=== PATIENT | female | born 1970 | race Caucasian/White ===

== ENCOUNTER 2016-11-09 22:00 | Emergency (ER) | payer OTHER ==
[~2016-11-09] VITALS: Ht 157.5 cm; Wt 57.5 kg
[2016-11-09 22:19] VITALS: Ht 157.5 cm; Wt 57.5 kg
[2016-11-09] MEDS ORDERED: KETOROLAC 15 MG INJ IM STA (23:42)
[2016-11-10] MEDS ORDERED: LIDOCAINE/MYLANTA 40 ML BTL PO ONE
[2016-11-10] MEDS ORDERED: FAMOTIDINE 20 MG TAB PO ONE
[2016-11-10] MEDS ORDERED: ONDANSETRON 4 MG INJ IV STA (01:21)
[2016-11-10] MEDS ORDERED: SOD CHLORIDE 0.9% 1,000 ML IV ONE (01:30)
[2016-11-10] MEDS ORDERED: morphine 10 MG INJ IM ONE (01:30)
[2016-11-10] MEDS ORDERED: PANTOPRAZOLE 40 MG INJ IV ONE (01:30)
[2016-11-10] MEDS ORDERED: morphine 2 MG INJ IV ONE (02:00)
[2016-11-10 02:06] LABS: ADD SCAN DIFF NO
[2016-11-10 02:07] LABS: BASOPHILS % 0.3 % (0.0-2.0); EOSINOPHILS % 0.4 % (0.0-7.0); HEMATOCRIT 31.8 % (37.0-47.0); HEMOGLOBIN 9.5 g/dl (12.0-16.0); LYMPHOCYTES # 2.1 10^3/ul (0.8-2.9); LYMPHOCYTES % 29.6 % (15.0-51.0); MEAN CORPUSCULAR HEMOGLOBIN 21.5 pg (29.0-33.0); MEAN CORPUSCULAR HGB CONC 29.9 g/dl (32.0-37.0); MEAN CORPUSCULAR VOLUME 71.9 fl (82.0-101.0); MEAN PLATELET VOLUME 11.2 fl (7.4-10.4); MONOCYTES % 13.6 % (0.0-11.0); NEUTROPHILS % 55.7 % (39.0-77.0); PLATELET COUNT 369 10^3/UL (140-415); RED BLOOD COUNT 4.42 10^6/ul (4.20-5.40); RED CELL DISTRIBUTION WIDTH 16.6 % (11.5-14.5); WHITE BLOOD COUNT 7.2 10^3/ul (4.8-10.8)
[2016-11-10 03:13] LABS: ALBUMIN 4.7 g/dl (3.3-4.9); ALBUMIN/GLOBULIN RATIO 1.8; BILIRUBIN,INDIRECT 0.3 mg/dl (0-1.1); BILIRUBIN,TOTAL 0.3 mg/dl (0.2-1.3); CREATININE 0.68 mg/dl (0.44-1.00); POTASSIUM 3.9 mmol/L (3.5-5.1); TOTAL PROTEIN 7.3 g/dl (6.1-8.1)
--- NOTE | 2016-11-10 03:16 | ERD ---
ER Documentation Chief Complaint Date/Time DATE: 11/10/16 TIME: 03:06 Chief Complaint epigastric pain x 3 weeks, diarrhea n/v resolved HPI This 46-year-old [place]-speaking female presents to emergency department today for epigastric pain 2 weeks, diarrhea, nausea, vomiting 30 days. Patient has been seen by her primary care physician today with prescribed Lomatil . Patient reports that she has had 3 diarrhea stools today. Did not tell her physician about the abdominal pain. Patient reports pain is worse now. Patient has history of recent travel [place]. Denies dysuria, fever, chills, blood in her urine or stool. ROS All systems reviewed and are negative except as per history of present illness. Medications Home Meds No Active Prescriptions or Reported Meds Allergies Allergies: Coded Allergies: No Known Allergy (Unverified , 06/21/11) PMhx/Soc History of Surgery: Yes (CSECTION, GALLBLADDER) Anesthesia Reaction: No Hx Neurological Disorder: No Hx Respiratory Disorders: No Hx Cardiac Disorders: No Hx Psychiatric Problems: No Hx Miscellaneous Medical Probl: No Hx Alcohol Use: No Hx Substance Use: No Hx Tobacco Use: No Smoking Status: Never smoker Physical Exam Vitals Vital Signs Date Time Temp Pulse Resp B/P Pulse Ox O2 Delivery O2 Flow Rate FiO2 11/09/16 22:19 98.4 82 18 104/61 100 Physical Exam Const: No acute distress Head: Atraumatic Eyes: Normal Conjunctiva, PERRLA, EOMI ENT: Normal External Ears, Nose and Mouth. Neck: Resp: Chest rise and fall symmetrically, respirations even and unlabored no respiratory distress Cardio: Regular rate and rhythm, no murmurs Abd: Symmetric, soft, epigastric tenderness Skin: Back: Ext: Neur: Awake and alert Psych: Normal Mood and Affect Result Diagram: 11/10/16 0131 11/10/16 0131 Results 24 hrs Laboratory Tests Test 11/10/16 01:31 White Blood Count 7.210^3/ul Red Blood Count 4.4210^6/ul Hemoglobin 9.5g/dl Hematocrit 31.8% Mean Corpuscular Volume 71.9fl Mean Corpuscular Hemoglobin 21.5pg Mean Corpuscular Hemoglobin Concent 29.9g/dl Red Cell Distribution Width 16.6% Platelet Count 54080^3/UL Mean Platelet Volume 11.2fl Neutrophils % 55.7% Lymphocytes % 29.6% Monocytes % 13.6% Eosinophils % 0.4% Basophils % 0.3% Nucleated Red Blood Cells % 0.0/100WBC Neutrophils # 4.010^3/ul Lymphocytes # 2.110^3/ul Monocytes # 1.010^3/ul Eosinophils # 0.010^3/ul Basophils # 0.010^3/ul Nucleated Red Blood Cells # 0.010^3/ul Sodium Level 139mmol/L Potassium Level 3.9mmol/L Chloride Level 104mmol/L Carbon Dioxide Level 23mmol/L Anion Gap 16 Blood Urea Nitrogen 8mg/dl Creatinine 0.68mg/dl Glucose Level 110mg/dl Calcium Level 9.0mg/dl Total Bilirubin 0.3mg/dl Direct Bilirubin 0.00mg/dl Indirect Bilirubin 0.3mg/dl Aspartate Amino Transf (AST/SGOT) 132IU/L Alanine Aminotransferase (ALT/SGPT) 71IU/L Alkaline Phosphatase 83IU/L Troponin I < 0.012ng/ml Total Protein 7.3g/dl Albumin 4.7g/dl Globulin 2.60g/dl Albumin/Globulin Ratio 1.80 Lipase 64U/L Current Medications Medications (Trade) Dose Ordered Sig/Shayy Route PRN Reason Start Time Stop Time Status Last Admin Dose Admin Miscellaneous Medication (Gi Cocktail (2)) 40 ml ONCE ONCE PO 11/10/16 00:00 11/10/16 00:01 NM 11/10/16 00:20 Famotidine (Pepcid) 20 mg ONCE ONCE PO 11/10/16 00:00 11/10/16 00:01 NM 11/10/16 00:20 Ketorolac Tromethamine 15 mg 15 mg ONCE STAT IM 11/09/16 23:42 11/09/16 23:45 NM 11/10/16 00:20 Sodium Chloride (NS) 1,000 ml @ 1,000 mls/hr Q1H ONCE IV 11/10/16 01:30 11/10/16 02:29 NM 11/10/16 01:41 Pantoprazole (Protonix Iv) 40 mg ONCE ONCE IV 11/10/16 01:30 11/10/16 01:31 NM 11/10/16 01:41 Ondansetron HCl (Zofran Inj) 4 mg ONCE STAT IV 11/10/16 01:21 11/10/16 01:25 DC 11/10/16 01:41 Morphine Sulfate (morphine) 2 mg ONCE ONCE IM 11/10/16 01:30 11/10/16 01:39 DC Morphine Sulfate (morphine) 2 mg ONCE ONCE IV 11/10/16 02:00 11/10/16 02:01 DC 11/10/16 01:41 Interpretation text CBC shows no evidence of hemorrhage or infection Chemistry shows no evidence of significant electrolyte abnormalities or renal insufficiency Liver function tests shows no evidence of acute biliary AST elevated at 132. Troponin show no evidence of acute myocardial injury or coronary ischemia Procedures/MDM EKG: Rate/Rhythm: Normal Sinus Rhythm QRS, ST, T-waves: No changes consistent w/ acute ischemia Impression: No evidence of ischemia or arrhythmia This 46-year-old female presents to emergency department with a 3 day history of nausea vomiting diarrhea and a 2 week history of epigastric pain. Patient has been seen and treated for diarrhea by primary care physician with murali, patient reports 3 diarrhea stools today. Patient is able to eat and drink without deficit but reports epigastric pain denies smoking, alcohol, or spicy foods. Patient reports no hematuria or blood in stools. Patient denies lower abdominal cramping. Patient treated with p.o. Pepcid and tramadol IM, GI cocktail, patient reassessed after 60 minutes with no change in symptoms patient curled up in a ball in pain stating nothing helped. She feels the same as she did when she came in. Patient vomits 1 denies chest pain, shortness of breath, palpitations, or dyspnea, EKG, labs, 1 L normal saline, 40 mg of Protonix, and 2 mg of morphine provided. Serology shows no acute infection or hemorrhage, no electrolyte imbalance or renal insufficiency. Troponin is negative iliac muscle damage, ECG shows a normal sinus rhythm at a ventricular rate of 72 bpm symptoms likely related to gastritis, patient will be discharged home on Protonix. Follow-up with primary care physician in the next 78 hours. Return to emergency department for worsening. I feel the patient is stable for discharge at this time. I have discussed results, examination findings, the treatment plan with the patient and family present prior to discharge. Indications for emergent reevaluation, side effects of medication were also discussed. All questions were answered. Patient verbalizes understanding and agrees with plan of care. Departure Diagnosis: Primary Impression: Gastritis Gastritis type: unspecified gastritis Chronicity: unspecified Gastritis bleeding: without bleeding Qualified Code: K29.70 - Gastritis without bleeding, unspecified chronicity, unspecified gastritis type Condition: Good Patient Instructions: Gastritis (Adult) Additional Instructions: Thank you for for coming to [facility] for your care today. Please ask your nurse or provider if you have questions about your care today and do not leave until all your questions have been answered. Please use any medications given as directed and follow-up with your doctor (or the doctor you were referred to) in the next 2-3 days. If you do not have a primary care doctor you may follow up at the [facility] (listed below). You may also use motrin and tylenol as needed for fever and/or pain unless instructed otherwise by your provider or nurse. Indications for more urgent follow-up have been discussed, but you may return to the Emergency Department at ANY time for any worrisome or worsening symptoms. If you have abdominal pain, please know that no test or exam you received is perfect and you should follow up within 8 hours for continued pain. If you had any imaging studies today, such as an X-Ray or CT Scan, these studies will be reviewed later by a radiologist. You will be called if there are important findings that were not identified today, so make sure the contact information you provided at registration is correct. If you received any narcotic pain control medicine today, such as Vicodin, Morphine or Dilaudid, your coordination and judgment may be affected for a number of hours. Please do not drive or operate heavy machinery, and you may want someone to assist you at home. If you were given a prescription for narcotic medication, be aware that it is very addictive- use sparingly and only if necessary. SHELBY QUAN Nov 10, 2016 03:16
[2016-11-10] MEDS ORDERED: PANT40TA3 PO (03:45)
[2016-11-10 03:59] VITALS: BP 108/58; PULSE 77; RESP 16; TEMP 98.7
== END 2016-11-10 04:00 | disposition home or self-care (01) ==
LOC: FTE 22:00
DX: K29.70 Gastritis, unspecified, without bleeding (principal)
CPT/HCPCS: 80053; 83690; 84484; 85025; 93005; C9113; J1885; J2270; J2405; J7030; Z7610; 96372; 96374; 96375